=== PATIENT | female | born 1960 | race Two or more races ===

== ENCOUNTER 2022-04-21 09:00 | Inpatient (IN) | payer OTHER ==
[~2022-04-21] VITALS: Ht 157.5 cm; Wt 91.6 kg
[2022-04-21] MEDS ORDERED: JANUMET XR 1001 EACH PO (10:48)
[2022-04-21] MEDS ORDERED: INVOKANA300 MG PO (10:48)
[2022-04-21] MEDS ORDERED: LEVO-T137 MCG PO (10:48)
[2022-04-21] MEDS ORDERED: LIPITOR40 MG PO (10:49)
[2022-04-21] MEDS ORDERED: IRBESARTAN-HCT1 EAC1 PO (10:49)
== END 2022-04-23 12:14 | disposition home or self-care (01) | DRG 741 ==
LOC: O/R 04-22 07:12 → SURH 04-22 09:00
PROVIDERS: ADMIT Obstetrics & Gynecology Gynecologic Oncology; ATTEND Obstetrics & Gynecology Gynecologic Oncology
PROC: 0UT54ZZ Resection of Right Fallopian Tube, Percutaneous Endoscopic Approach (ICD-10-PCS; 2022-04-22)
PROC: 0UT04ZZ Resection of Right Ovary, Percutaneous Endoscopic Approach (ICD-10-PCS; 2022-04-22)
PROC: 0DNW4ZZ Release Peritoneum, Percutaneous Endoscopic Approach (ICD-10-PCS; 2022-04-22)
PROC: 0DNM4ZZ Release Descending Colon, Percutaneous Endoscopic Approach (ICD-10-PCS; 2022-04-22)
PROC: 0DNM4ZZ Release Descending Colon, Percutaneous Endoscopic Approach (ICD-10-PCS; 2022-04-22)
PROC: 07BD4ZZ Excision of Aortic Lymphatic, Percutaneous Endoscopic Approach (ICD-10-PCS; 2022-04-22)
PROC: 0UT94ZZ Resection of Uterus, Percutaneous Endoscopic Approach (ICD-10-PCS; principal; 2022-04-22 13:45)
DX: C54.1 Malignant neoplasm of endometrium (principal); D25.1 Intramural leiomyoma of uterus; D25.2 Subserosal leiomyoma of uterus; Z20.822 Contact with and (suspected) exposure to COVID-19